=== PATIENT | male | born 1985 | race Caucasian/White ===

== ENCOUNTER → 2018-01-21 | Outpatient (CLI) | payer OTHER ==
[~2018-01-21] MED LIST: CITA20TA9 PO; CLON0.5T3 PO
--- NOTE | 2018-01-23 16:46 | POLYSOMNOGRAPH REPORT ---
CLINICAL DATA: A 32-year-old male with BMI of 28.[address] Pena with severe snoring and excessive daytime sleepiness. On the evening of 01/22/2018, a home sleep apnea test was performed using a [employer] type 3 monitor. RECORDING RESULTS: Total recording time was 8.6 hours. The patient's estimated sleep time and patient monitoring time was 7.5 hours. RESPIRATORY DATA: Very severe sleep apnea was documented. The ALEKSANDRA was 52. There were 212 obstructive apneic episodes and 177 hypopneic episodes. The longest respiratory event was 56 seconds. OXIMETRY DATA: Nocturnal hypoxemia was seen. Oxygen daniela was 84%. Mean saturation was 92%. Time below 89% was 22 minutes. HEART RATE DATA: Heart rates ranged from 40-58 beats per minute. SNORING DATA: Snoring was recorded throughout the night. IMPRESSION: Very severe sleep apnea/hypopnea with an ALEKSANDRA of 52 with nocturnal hypoxemia. RECOMMENDATIONS: The patient may benefit from a repeat sleep study with CPAP and/or sleep medicine consultation. Clinical correlation is needed. PRINCE
== END | disposition home or self-care (01) ==
LOC: C.NEUR 14:58
DX: G47.33 Obstructive sleep apnea (adult) (pediatric) (principal)

== ENCOUNTER → 2018-02-05 | Outpatient (CLI) | payer OTHER ==
[~2018-02-05] VITALS: Ht 188 cm; Wt 99.3 kg
[2018-02-05 15:40] VITALS: BP 123/87; PULSE 89; Ht 188 cm; Wt 99.3 kg
== END | disposition home or self-care (01) ==
LOC: C.NEUR 14:56
PROVIDERS: ATTEND Physician Assistant Medical
DX: G47.30 Sleep apnea, unspecified (principal); R06.83 Snoring; J34.2 Deviated nasal septum; R91.1 Solitary pulmonary nodule

== ENCOUNTER → 2018-02-11 | Outpatient (CLI) | payer OTHER ==
--- NOTE | 2018-02-11 09:19 | DIAGNOSTIC IMAGING REPORT ---
(CHEST) THORAX WITHOUT CT DOSE: 472.24 mGy.cm HISTORY: R91.1 Solitary pulmonary nodule TECHNIQUE: Multiaxial CT images of the chest were performed without contrast. A dose lowering technique was utilized adhering to the principles of ALARA. COMPARISON: Chest CT 05/17/2015. Chest CT 04/27/2014. FINDINGS: No enlarged axillary, mediastinal or hilar lymph nodes are present. The size of the heart is within normal limits. The central airways are patent. A 1.3 cm ground glass nodule within the right upper lobe is unchanged since the initial CT of 04/27/2014. There are no significant abnormalities within visualized skeletal structures of the chest. No abnormalities are identified within visualized portions of the upper abdomen on this unenhanced examination. Increase in the soft tissue density within the anterior mediastinum. This favors residual thymic tissue given the patient's age. IMPRESSION: 1. No significant change in 1.3 cm ground glass nodule within the right upper lobe since initial chest CT of 04/27/2014. 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 2. No thoracic lymphadenopathy. 3. Increase in the soft tissue density within the anterior mediastinum. This favors residual thymic tissue given the patient's age. Electronically signed by: Isrrael Bethea M.D. 02/11/2018 9:17 AM Dictated Date/Time: 02/11/2018 9:10 AM
== END | disposition home or self-care (01) ==
LOC: C.CTS 08:51
PROVIDERS: ATTEND Physician Assistant Medical
DX: R91.1 Solitary pulmonary nodule (principal)

== ENCOUNTER → 2018-03-20 | Day surgery (SDC) | payer OTHER ==
[2018-03-05 11:03] VITALS: Ht 188 cm; Wt 95.5 kg
[2018-03-11 16:46] LABS: BASO ABS # 0.05 K/uL (0-0.2); EOS % 3.1 %; EOS ABS # 0.16 K/uL (0-0.5); HEMATOCRIT 42.8 % (42-52); HEMOGLOBIN 15.1 g/dL (14.0-18.0); IG# 0.03 K/uL (0.00-0.02); LYMPH % 25.4 %; LYMPH ABS # 1.32 K/uL (1.2-3.4); MEAN CELL VOLUME 83.4 fL (80-100); MEAN CORPUSCULAR HEMOGLOBIN 29.4 pg (25-34); MEAN CORPUSCULAR HGB CONC 35.3 g/dl (32-36); MEAN PLATELET VOLUME 12.6 fL (7.4-10.4); MONO % 10.4 %; MONO ABS # 0.54 K/uL (0.11-0.59); NEUT % 59.5 %; PLATELET COUNT 173 K/uL (130-400); RED CELL DISTRIBUTION WIDTH SD 39.4 fL (36.4-46.3)
[2018-03-11 16:55] LABS: PTT PATIENT 27.8 SECONDS (21.0-31.0)
[2018-03-11 17:00] LABS: POTASSIUM 3.9 mmol/L (3.5-5.1)
[~2018-03-20] VITALS: Ht 188 cm; Wt 95.5 kg
[~2018-03-20] MED LIST changes: +ATROPINE SULFATE 0.1 MG/ML 5ML SYR IV PRN; +CEFAZOLIN 2000MG IV PUSH 15 ML IV SCH; +DEXAMETHASONE SOD INJ 4 MG/ML VIAL ONE; +EpHEDrine SULFATE INJ 50 MG/ML AMP IV PRN; +EpINEphrine HCL INJ 1 MG/ML 1ML SYRINGE ONE; +FENTANYL CITRATE INJ 50 MCG/1 ML 2 ML VIAL IV PRN; +FENTANYL CITRATE INJ 50 MCG/1 ML 2 ML VIAL ONE; +FLUMAZENIL 0.1 MG/1 ML 10 ML VIAL IV PRN; +HYDROCODONE/ACETAMIN 5/325MG TAB PO PRN; +LACTATED RINGER'S 1000ML 1,000 ML IV SCH; +LARYING-O-JET KIT (LTA) ONE; +LIDOCAINE 4% INH SOLN 4 ML BTL ONE; +LIDOCAINE HCL 2% 2 ML VIAL (20MG/ML) ONE; +MIDAZOLAM HCL 1 MG/ML 2ML VIAL ONE; +NALOXONE HCL 0.4 MG/1 ML VIAL/CARP IV PRN; +ONDANSETRON INJ 2 MG/ML 2 ML VIAL IV PRN; +ONDANSETRON INJ 2 MG/ML 2 ML VIAL ONE; +OXYMETAZOLINE HCL 0.05% NA SPR 15 ML BTL PRN; +OXYMETAZOLINE HCL 0.05% NA SPR 15 ML BTL SCH; +PROMETHAZINE HCL INJ 12.5 MG in SODIUM CHLORIDE 0.9% 50ML 50 ML IV PRN; +PROPOFOL IV EMULSION 10 MG/ML 20 ML VIAL ONE; +ROCURONIUM BROMIDE 10 MG/ML 5 ML VIAL ONE; +SUCCINYLCHOLINE CHLORIDE 20 MG/ML 10 ML VIAL IV ONE
[2018-03-20 06:25] VITALS: BP 114/80; PULSE 70; TEMP 37.2; O2SAT 98
--- NOTE | 2018-03-20 06:37 | History & Physical Bridge Note ---
H&P Re-Evaluation Bridge Note: I have examined the patient, reviewed the History & Physical and in the interval since the performance of the History & Physical I have noted the following changes of clinical significance: No changes noted
[2018-03-20] MEDS: LIDOCAINE/EPINEPHRINE 1% 20 ML VIAL ONE (08:30)
--- NOTE | 2018-03-20 08:46 | [facility] Operative Report ---
Operative Report Operative Date March 20, 2018. Pre-Operative Diagnosis Deviated Nasal Septum, Hypertrophy of Bilateral Inferior Turbinates Post-Operative Diagnosis Deviated Nasal Septum, Hypertrophy of Bilateral Inferior Turbinates Procedure(s) Performed Septoplasty and Bilateral Inferior Turbinate Reduction Surgeon Dr. Escobar Pena Senior Director Marketing Surgeon(s) None per surgeon Estimated Blood Loss 10ml Findings 1. SEVERE L DNS AND R>L ITH Specimens None per surgeon. Anesthesia Type General I attest to the content of the Intraoperative Record and any orders documented therein. Any exceptions are noted below.
--- NOTE | 2018-03-20 08:47 | Discharge Instructions ---
Discharge Instructions Date of Service March 20, 2018. Admission Reason for Admission: Severe Sleep Apnea, Deviated Septum, B/L Hypertro Discharge Discharge Diagnosis / Problem: SAME Discharge Goals Goal(s): Therapeutic intervention Activity Recommendations Activity Limitations: as noted below LIGHT ACTIVITY AND NO NOSE BLOWING FOR 2 WEEKS; NO DRIVING WHILE ON NORCO . Current Hospital Diet Patient's current hospital diet: Discharge Diet Recommended Diet: Regular Diet Procedures Procedures Performed: Septoplasty and Bilateral Inferior Turbinate Reduction Pending Studies Studies pending at discharge: no Medical Emergencies . Who to Call and When: Medical Emergencies: If at any time you feel your situation is an emergency, please call 911 immediately. . Non-Emergent Contact Non-Emergency issues call your: Surgeon . . "Provider Documentation" section prepared by Escobar Pena. .
--- NOTE | 2018-03-20 09:28 | Anesthesiology Progress Note ---
Anesthesia Post Op Note Date & Time March 20, 2018 at 09:28 Vital Signs Pain Intensity: 0 Vital Signs Past 12 Hours Date Time Temp Pulse Resp B/P (MAP) Pulse Ox O2 Delivery O2 Flow Rate FiO2 03/20/18 09:20 36.5 61 16 133/83 94 Room Air 03/20/18 09:10 83 16 142/84 95 Room Air 03/20/18 09:00 92 16 143/75 96 Oxymask 3 03/20/18 08:52 36.1 89 16 143/85 95 Oxymask 5 03/20/18 06:25 37.2 70 16 114/80 (91) 98 Room Air Notes Mental Status: alert / awake / arousable, participated in evaluation Pt Amnestic to Procedure: Yes Nausea / Vomiting: adequately controlled Pain: adequately controlled Airway Patency, RR, SpO2: stable & adequate BP & HR: stable & adequate Hydration State: stable & adequate Anesthetic Complications: no major complications apparent
[2018-03-20 09:35] VITALS: BP 131/85; PULSE 63; TEMP 36.8; O2SAT 95
[2018-03-20 10:05] VITALS: BP 138/97; PULSE 56; O2SAT 95
[2018-03-20 10:35] VITALS: BP 128/82; PULSE 55; O2SAT 96
--- NOTE | 2018-03-20 10:40 | OPERATIVE REPORT ---
DATE OF OPERATION: 03/20/2018 PREOPERATIVE DIAGNOSES: 1. Severe left septal deviation. 2. Severe right greater than left inferior turbinate hypertrophy. POSTOPERATIVE DIAGNOSES: 1. Severe left septal deviation. 2. Severe right greater than left inferior turbinate hypertrophy. PROCEDURES: 1. Septoplasty. 2. Bilateral inferior turbinate outfracture and turbinoplasty. SURGEON: Escobar Pena MD ANESTHESIA: General endotracheal. ESTIMATED BLOOD LOSS: 10 mL. FINDINGS: 1. Severe left septal deviation with 100% nasal airway obstruction. 2. Severe right greater than left inferior turbinate hypertrophy. SPECIMENS: None. COMPLICATIONS: None. INDICATIONS FOR THE PROCEDURE: The patient is a 32-year-old male with a history of left greater than right nasal airway obstruction which has been refractory to maximal medical therapy including nasal antihistamines and nasal steroid sprays. He was found to have severe left septal deviation and right greater than left inferior turbinate hypertrophy. 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 He presents for the above-mentioned procedure on an outpatient elective basis. DETAILS OF PROCEDURE: After informed consent had been obtained from the patient, the patient was wheeled to the operating room and placed on the operating table in the supine position. Monitors were placed. After induction of general endotracheal anesthesia, the patient was prepped in the usual fashion for septoplasty. Lidocaine and epinephrine pledgets were placed into bilateral nasal cavities and pressure applied. After allowing adequate time for vasoconstriction and anesthesia, the pledgets were removed and a #15 scalpel was used to make a left hemitransfixion incision through which the left-sided mucoperichondrial mucoperiosteal flap was elevated. A #15 scalpel was then used to incise the quadrangular cartilage with care to preserve a 1.5 cm dorsal and caudal strut and a right-sided mucoperichondrial mucoperiosteal flap was elevated through this cartilaginous incision. A Gina swivel knife was then used to remove the deviated portion of the quadrangular cartilage. A V-shaped osteotome, mallet, and Rubio forceps were then used to remove a large bony septal spur which was impinging on the airway posteriorly to the left hand side. The septum was then found to be midline. The septal cavity was suctioned. The left hemitransfixion incision was closed with 3 simple interrupted 4-0 chromic sutures. A 4-0 plain gut suture on a Alireza needle was then used to perform a quilting stitch of the mucoperichondrial mucoperiosteal flaps bilaterally to help prevent septal hematoma. A Carballo elevator was then used to infracture and subsequently outfracture the inferior turbinates bilaterally. These were injected with 1% lidocaine with 1:100,000 epinephrine. A 2.0 mm turbinate blade using powered instrumentation was then used to perform bilateral inferior turbinoplasties in a submucosal fashion. The nasal cavities and nasopharynx were then suctioned. An orogastric tube was placed and the stomach was suctioned free of air and stomach contents. This marked the end of the case. The patient tolerated the procedure well and there were no apparent complications. The patient was extubated and transferred to recovery room in stable condition. I attest to the content of the Intraoperative Record and any orders documented therein. Any exception s are noted below.
== END | disposition home or self-care (01) ==
LOC: C.ACU 05:58
DX: J34.2 Deviated nasal septum (principal); J34.3 Hypertrophy of nasal turbinates; G47.33 Obstructive sleep apnea (adult) (pediatric); F41.9 Anxiety disorder, unspecified; F32.9 Major depressive disorder, single episode, unspecified